=== PATIENT | male | born 1990 | race African-American/Black ===

== ENCOUNTER 2025-04-30 15:29 | Inpatient (IN) | payer SELFPAY ==
[~2025-04-30] VITALS: Ht 175.3 cm; Wt 79.4 kg
[2025-04-30] MEDS: SODIUM CHLORIDE 0.9% 1,000 ML IV ONE (16:17)
[2025-04-30] MEDS: ONDANSETRON HCL 4MG/2ML INJ IV ONE (16:17)
[2025-04-30 16:26] LABS: BASOPHILS % 0.3 % (0.0-2.0); EOSINOPHILS % 0.2 % (0.0-5.0); HEMATOCRIT. 45.4 % (42.0-52.0); HEMOGLOBIN. 14.8 g/dL (14.0-18.0); LYMPHOCYTES % 9.5 % (20.0-50.0); MEAN CORPUSCULAR HGB CONC 32.7 g/dL (31.0-37.0); MEAN CORPUSCULAR VOLUME 91.6 fL (80.0-94.0); MEAN PLATELET VOLUME 7.7 fl (7.4-10.4); MONOCYTES % 4.1 % (2.0-8.0); NEUTROPHILS % 85.9 % (40.0-76.0); PLATELET 180 x1000/uL (130-400); RED BLOOD CELL COUNT 4.95 mill/uL (4.7-6.1); RED CELL DISTRIBUTION WIDTH 13.7 % (11.6-14.6); WHITE BLOOD COUNT 10.6 x1000/uL (4.5-11.0)
[2025-04-30 16:33] LABS: CHLORIDE 111 mEq/L (98-107); POTASSIUM 3.9 mEq/L (3.5-5.1); SODIUM 140 mEq/L (136-145)
[2025-04-30 16:34] LABS: CARBON DIOXIDE 23 mEq/L (21-32)
[2025-04-30 16:35] LABS: CALCIUM 9.4 mg/dL (8.7-10.4)
[2025-04-30 16:40] LABS: CREATININE 1.2 mg/dL (0.6-1.3); GLUCOSE 100 mg/dL (70-105); TROPONIN I HIGH SENSITIVITY 8 ng/L (3.0-53); UREA NITROGEN BLOOD 13 mg/dL (9-23)
[2025-04-30 16:42] LABS: ALANINE AMINOTRANSFERASE 31 IU/L (10-49); ALBUMIN 4.5 g/dL (3.2-4.8); ASPARTATE AMINOTRANSFERASE 29 IU/L (<34); BILIRUBIN DIRECT 0.1 mg/dL (<=3.0); BILIRUBIN TOTAL 0.5 mg/dL (0.1-1.0); PROTEIN TOTAL 7.2 g/dL (6.0-8.3)
[2025-04-30 18:45] LABS: TROPONIN I HIGH SENSITIVITY 9 ng/L (3.0-53)
[2025-04-30 20:00] VITALS: BP 151/70; PULSE 54; RESP 19; TEMP 36.4; O2SAT 100
[2025-04-30] MEDS ORDERED: DOCUSATE SODIUM 100MG CAPSULE PO PRN (20:15)
[2025-04-30] MEDS ORDERED: GUAIFENESIN 200MG/10ML SUGAR FREE UDC PO PRN (20:15)
[2025-04-30] MEDS ORDERED: MAGNESIUM/ALUMINUM HYDROXIDE/SIMETHICONE 30ML UDC PO PRN (20:15)
[2025-04-30] MEDS ORDERED: ACETAMINOPHEN 325MG TABLET PO PRN ×2 (20:15)
[2025-04-30] MEDS ORDERED: IPRATROPIUM/ALBUTEROL 0.5-3(2.5)MG/3ML NEB HHN PRN (20:15)
[2025-04-30] MEDS ORDERED: CLONIDINE 0.1MG TABLET PO PRN (20:15)
[2025-04-30] MEDS ORDERED: FOLIC ACID 1 MG, THIAMINE HCL 100 MG, MVI, ADULT NO.1 10 ML in DEXTROSE 5% WATER 1,000 ML IV ONE (21:00)
[2025-04-30 21:29] LABS: D-DIMER 1.74 mg/L FEU (<0.50); INR 1.1; PROTHROMBIN TIME 11.3 sec (9.6-11.0)
[2025-04-30 21:38] LABS: TRIGLYCERIDE 67 mg/dL (0-150)
[2025-04-30 21:39] LABS: ETHANOL BLOOD < 10 mg/dL (<10); LDL CHOLESTEROL 66 mg/dL (5-100)
[2025-04-30 21:40] LABS: CHOLESTEROL 112 mg/dL (<200); HDL CHOLESTEROL 36 mg/dL (>55); PHOSPHORUS 2.5 mg/dL (2.5-4.9)
[2025-04-30 21:43] LABS: THYROID STIMULATING HORMONE 0.62 uIU/mL (0.55-4.78)
[2025-04-30 21:45] VITALS: BP 151/70; PULSE 54; RESP 19; TEMP 36.5
[2025-04-30] MEDS: ONDANSETRON HCL 4MG/2ML INJ IV PRN (22:19)
[2025-04-30] MEDS: FOLIC ACID 1 MG, THIAMINE HCL 100 MG, MVI, ADULT NO.1 10 ML in DEXTROSE 5% WATER 1,000 ML IV ONE (23:16)
[2025-05-01] VITALS: BP 108/49; PULSE 60; RESP 20; TEMP 36.4; O2SAT 98
[2025-05-01] MEDS: PANTOPRAZOLE SODIUM 40 MG/VIAL IV NR (00:17)
[2025-05-01] MEDS: MAGNESIUM 2 G PREMIX 50 ML IV NR (01:13)
[2025-05-01 03:11] LABS: CREATINE KINASE MB FRACTION 2.5 ng/mL (0.5-3.6)
[2025-05-01 04:00] VITALS: BP 116/61; PULSE 70; RESP 20; TEMP 36.3; O2SAT 100
[2025-05-01] MEDS ORDERED: IBUP-2030 PO (05:13)
[2025-05-01] MEDS ORDERED: ESCI10TA PO (05:13)
[2025-05-01] MEDS ORDERED: PRED10TA PO (05:13)
[2025-05-01 06:11] LABS: HEMOGLOBIN 13.6 g/dL (14.0-18.0); MEAN CORPUSCULAR HEMOGLOBIN 29.8 pg (28.0-32.0); MEAN CORPUSCULAR HGB CONC 33.1 g/dL (31.0-37.0); MEAN CORPUSCULAR VOLUME 89.9 fL (80.0-94.0); PLATELET 177 x1000/uL (130-400); RED BLOOD CELL COUNT 4.56 mill/uL (4.7-6.1); RED CELL DISTRIBUTION WIDTH 13.7 % (11.6-14.6); WHITE BLOOD COUNT 7.1 x1000/uL (4.5-11.0)
[2025-05-01 06:26] LABS: CARBON DIOXIDE 27 mEq/L (21-32); CHLORIDE 105 mEq/L (98-107); POTASSIUM 4.7 mEq/L (3.5-5.1); SODIUM 140 mEq/L (136-145)
[2025-05-01 06:27] LABS: CALCIUM 9.1 mg/dL (8.7-10.4)
[2025-05-01 06:32] LABS: CREATININE 1.3 mg/dL (0.6-1.3); GLUCOSE 146 mg/dL (70-105); UREA NITROGEN BLOOD 16 mg/dL (9-23)
[2025-05-01 06:34] LABS: CREATINE KINASE MB FRACTION 1.8 ng/mL (0.5-3.6); PHOSPHORUS 3.3 mg/dL (2.5-4.9)
[2025-05-01 07:52] VITALS: BP 109/70; PULSE 71; TEMP 98.9; O2SAT 98
[2025-05-01 08:00] VITALS: BP 109/70; PULSE 71; RESP 18; TEMP 37.2; O2SAT 98
[2025-05-01] MEDS: ENOXAPARIN 40MG/0.4ML SYR SUBCUT SCH (08:46)
[2025-05-01 09:45] LABS: CLARITY URINE CLEAR (CLEAR); COLOR URINE YELLOW (YELLOW); GLUCOSE URINE NEGATIVE (NEGATIVE); KETONES URINE NEGATIVE (NEGATIVE); LEUKOCYTE ESTERASE URINE NEGATIVE (NEGATIVE); NITRITE URINE NEGATIVE (NEGATIVE); OCCULT BLOOD URINE NEGATIVE (NEGATIVE); PROTEIN URINE NEGATIVE (NEGATIVE); UROBILINOGEN URINE 0.2 E.U./dL (0.2-1.0)
[2025-05-01 10:12] LABS: *AMPHETAMINES SCREEN URINE NEGATIVE (NEGATIVE); *BARBITURATES SCREEN URINE NEGATIVE (NEGATIVE); *BENZODIAZEPINES SCREEN URINE NEGATIVE (NEGATIVE); *COCAINE SCREEN URINE NEGATIVE (NEGATIVE)
[2025-05-01 10:13] LABS: CANNABINOID URINE SCREEN PRESUMPTIVE POSITIVE (NEGATIVE); ECSTASY MDMA SCREEN URINE NEGATIVE (NEGATIVE); METHADONE URINE SCREEN NEGATIVE (NEGATIVE); OPIATES URINE SCREEN NEGATIVE (NEGATIVE); PHENCYCLIDINE URINE SCREEN NEGATIVE (NEGATIVE)
== END 2025-05-01 13:46 | disposition home or self-care (01) | DRG 248 ==
LOC: ER 15:29 → 7WST 19:45 → EDBEDREQ 19:48 → ENRESERV 20:26 → CANRESERV 20:34 → ENRESERV 20:34 → ENRESERVTM 20:34
PROVIDERS: ADMIT Internal Medicine; ATTEND Internal Medicine
DX: A04.9 Bacterial intestinal infection, unspecified (principal); A08.4 Viral intestinal infection, unspecified; E11.9 Type 2 diabetes mellitus without complications; E83.42 Hypomagnesemia; R00.1 Bradycardia, unspecified; R55 Syncope and collapse; F32.A Depression, unspecified; F41.9 Anxiety disorder, unspecified; R79.89 Other specified abnormal findings of blood chemistry
CPT/HCPCS: 36415; 71045; 74176; 80048; 80061; 80076; 80305; 80320; 81003; 82550; 82553; 83036; 83605; 83735; 84100; 84439; 84443; 84484; 85025; 85027; 85379; 93005; 99291; J1650; J2405; J2470; J3411; J3475; J3490; J7030; J7070; G0480